=== PATIENT | male | born 1960 | race Caucasian/White ===

== ENCOUNTER 2017-08-19 19:15 | Emergency (ER) | payer OTHER ==
[~2017-08-19] VITALS: Ht 185.4 cm; Wt 84.1 kg
[2017-08-19 22:30] VITALS: BP 137/72
== END 2017-08-19 22:33 | disposition home or self-care (01) ==
LOC: EMS 19:16
DX: F29 Unspecified psychosis not due to a substance or known physiological condition (principal); F22 Delusional disorders; F17.210 Nicotine dependence, cigarettes, uncomplicated; F12.90 Cannabis use, unspecified, uncomplicated; F19.90 Other psychoactive substance use, unspecified, uncomplicated; F14.90 Cocaine use, unspecified, uncomplicated; F11.90 Opioid use, unspecified, uncomplicated
CPT/HCPCS: 99285